=== PATIENT | male | born 1985 | race Caucasian/White ===

== ENCOUNTER 2022-03-13 15:21 | Emergency (ER) | payer OTHER, SELFPAY ==
--- NOTE | ~2022-03-13 | XR_ITS ---
EXAMINATION: XR CHEST CLINICAL INFORMATION: Syncope. Cough. COMPARISON: None TECHNIQUE: Frontal view of the chest was obtained. FINDINGS: No significant abnormality is noted involving the heart, lungs, mediastinum, bony thorax or soft tissues. XR/XR chest 1V IMPRESSION: Unremarkable examination.
[2022-03-13 15:45] VITALS: BP 142/80; PULSE 87; RESP 18; TEMP 36.8; O2SAT 98; BMI 28.3
--- NOTE | 2022-03-13 15:50 | ECG_ITS ---
Test Reason : SYNCOPE Blood Pressure : / mmHG Vent. Rate : 068 BPM Atrial Rate : 068 BPM P-R Int : 100 ms QRS Dur : 090 ms QT Int : 392 ms P-R-T Axes : 019 020 001 degrees QTc Int : 416 ms Sinus rhythm with short [place] Inferior infarct , age undetermined Abnormal ECG No previous ECGs available Referred By: Generic ED Physician Electronically Signed By:KAI STEEN MD
[2022-03-13 16:15] LABS: MANUAL DIFF FLAG NO
[2022-03-13 16:16] LABS: Basophils Percent Auto 0.7 % (0-2); Eosinophils Absolute Auto 0.2 X10*3/uL (0.0-0.4); Eosinophils Percent Auto 2.9 % (0-4); Hematocrit 40.7 % (42.0-52.0); Hemoglobin 13.5 g/dl (14.0-18.0); Imm Gran Abs Auto 0.02 X10*3/uL (0.00-0.03); Imm Gran Pct Auto 0.4 % (0.0-0.4); Lymphocytes Absolute Auto 1.6 X10*3/uL (1.2-4.9); Lymphocytes Percent Auto 29.5 % (20-40); Mean Corpuscular HGB Conc 33.2 g/dl (31.0-36.0); Mean Corpuscular Hemoglobin 28.6 pg (27.0-33.0); Mean Corpuscular Volume 86.2 fL (80.0-98.0); Mean Platelet Volume 9.4 fL (9.4-12.4); Monocytes Absolute Auto 0.6 X10*3/uL (0.1-1.2); Monocytes Percent Auto 10.6 % (2-11); Neutrophils Absolute Auto 3.1 x10*3/uL (2.0-8.3); Neutrophils Percent Auto 55.9 % (45-73); Platelet Count 232 X10*3/uL (160-400); Red Blood Count 4.72 X10*6/uL (4.60-5.80); Red Cell Distribution Width 12.8 % (11.0-16.0); White Blood Count 5.5 X10*3/uL (4.8-10.8)
[2022-03-13 16:33] LABS: Anion Gap 12 (12-20); Blood Urea Nitrogen 11 mg/dL (9-16); Calcium 9.1 mg/dL (8.4-10.2); Carbon Dioxide 27 mmol/L (22-29); Chloride 104 mmol/L (96-108); Creatinine Clr Calc Pharmacy 129.3; Estimated Glomerular Filt Rate > 60; Glucose Random 93 mg/dL (60-115); Potassium 3.6 mmol/L (3.3-5.1); Sodium 139 mmol/L (135-145)
[2022-03-13 16:38] LABS: Influenza A Negative (Negative); Influenza B2 Negative (Negative)
[2022-03-13 16:41] LABS: Troponin-I High Sensitivity < 3.5 ng/L (<3.5-35.0)
[2022-03-13 16:42] LABS: COVID-19 Test Negative (Negative); IDNOW Serial# 55D5AD1C
--- NOTE | 2022-03-13 22:04 | ED_ITS ---
HPI - Syncope General Chief Complaint: Syncope Stated Complaint: passed out 2X/dizziness Time Seen by Provider: 03/13/22 17:59 Source: patient Mode of arrival: ambulatory Limitations: no limitations History of Present Illness HPI narrative: 36-year-old male who presents emergency department for evaluation of cough, chest pain, shortness of breath, difficulty sleeping secondary to cough and a syncopal episode. The patient states that he is prone to getting bronchitis. He states that he had a COVID infection in 2020 and in November of 2021. He states that 2-3 weeks prior he had bronchitis history with amoxicillin he states that on , 03/07/2022 he developed bronchitis again. He states that he has a cough which is productive of thick green sputum. He has not noticed any blood in the sputum. He states that he has sharp intermittent pain in the center of his chest whenever he coughs. He denied fever or chills. He did see his PCP 2 days ago and was started on antibiotic and Tessalon Perles. He states that today he had an episode of coughing, he felt lightheaded and dizzy and then passed out for 10 seconds. He woke up again and then passed out for another 10 seconds. He states that he has had similar episodes of syncope in the past when he has vomited. He states that his cough is worse at night and he is having difficulty sleeping. Related Data Previous Rx's Medication Instructions Recorded codeine 10 mg-guaifenesin 200 mg/5 10 ml PO Q4-6H PRN #473 ml 03/13/22 mL oral liquid Allergies Allergy/AdvReac Type Severity Reaction Status Date / Time No Known Allergies Allergy Verified 03/13/22 15:49 Review of Systems Review of Systems: Yes all other systems are reviewed and are negative [facility] Past Medical History [facility] Narrative: Past medical history: COVID-19 infection x2, last infection November 2021. Anxiety. Past surgical history: None. Social history: He denies tobacco use. He denies alcohol use. He states that he occasionally uses marijuana. Social History Social History Advance Directives: No Physical Exam Vital Signs: Vital Signs: Last Vital Signs Temp 98.3 F 03/13/22 15:45 Pulse 87 03/13/22 15:45 Resp 18 03/13/22 15:45 BP 142/80 H 03/13/22 15:45 Pulse Ox 98 03/13/22 15:45 BMI result Body Mass Index 28.3 Const: General: cooperative and no acute distress Orientation/consciousness: oriented to person and oriented to place Limitations: no limitations HEENT: Head: Yes normal to inspection, Yes normocephalic and Yes atraumatic Ears: external ears normal General nose exam: Normal external nose present Face and sinus: Yes normal facial exam Mouth: Normal oral and palatal mucosa present Throat: Yes posterior oropharynx normal Eyes: General: appearance normal, both eyes and all related structures Pupils: Equal, round and reactive pupils present Neck: Neck: Yes normal visual inspection, Yes no lymphadenopathy, Yes trachea midline and Yes supple Chest: Chest palpation & inspection: normal inspection of the chest and normal palpation of entire chest wall Resp: Effort & Inspection: normal respiratory effort and able to speak in complete sentences Auscultation: clear to auscultation bilaterally Cardio: Rate: regular rate Rhythm: regular rhythm Heart sounds: S1 normal heart sound present, S2 normal heart sound present and no murmurs GI: Inspection: Yes normal to inspection Palpation (GI): Soft to palpation, nontender and no guarding Auscultation: normal bowel sounds : General: Yes no CVA tenderness Back/Spine/Pelvis: Back: no CVA tenderness Skin: General skin exam: no rashes or lesions noted Neuro: General: oriented to person and oriented to place Cranial nerves: Yes CN's II-XII intact bilaterally and Yes Equal, round and reactive pupils present Cognition (Neuro): normal cognition Motor exam (neuro): 5/5 motor strength present throughout Extrem: General: Yes normal to inspection Psych: Appearance: grossly normal Speech and movement: Normal speech and movement present Affect: normal affect Attitude: cooperative Thought process: Normal thought process present Thought content: Normal thought content present Course Course Course Narrative: 36-year-old male who presents emergency department for evaluation of cough, chest pain, syncopal episode x2. The patient has had a cough which is productive of thick green sputum x7 days, he has been on antibiotics and Tessalon Perles for 2 days. The patient had a coughing episode today which was followed by lightheadedness and then brief syncope for approximately 10 seconds x2 episodes. Patient has had similar syncopal episodes in the past triggered by events such as vomiting. The patient's vital signs were normal. Patient's physical examination was unremarkable. Laboratory evaluation included a CBC, CMP and troponin, these tests were all normal. The patient's COVID-19 test was negative and influenza test was negative. Twelve EKG was unremarkable as well. The patient's syncopal episodes are consistent with vasovagal syncope. At this time, the patient is being treated with antibiotics for his bronchitis and I do not think that he needs a change of antibiotics since he has only been on them for 2 days. I did prescribe Robitussin with codeine to help with the patient's cough at night and to try to help him with his insomnia. Patient was given printed and verbal instructions and discharged home. MDM - Syncope Lab Data Attestation: I reviewed the patient's lab results. Result diagrams: 03/13/22 16:07 03/13/22 16:07 Labs: Lab Results 03/13/22 03/13/22 03/13/22 Range/Units 16:07 16:07 16:07 WBC 5.5 (4.8-10.8) X10*3/uL RBC 4.72 (4.60-5.80) X10*6/uL Hgb 13.5 L (14.0-18.0) g/dl Hct 40.7 L (42.0-52.0) % MCV 86.2 (80.0-98.0) fL MCH 28.6 (27.0-33.0) pg MCHC 33.2 (31.0-36.0) g/dl RDW 12.8 (11.0-16.0) % Plt Count 232 (160-400) X10*3/uL MPV 9.4 (9.4-12.4) fL Immature Gran % (Auto) 0.4 (0.0-0.4) % Neut % (Auto) 55.9 (45-73) % Lymph % (Auto) 29.5 (20-40) % Mckean % (Auto) 10.6 (2-11) % Eos % (Auto) 2.9 (0-4) % Baso % (Auto) 0.7 (0-2) % Lymph # (Auto) 1.6 (1.2-4.9) X10*3/uL Mckean # (Auto) 0.6 (0.1-1.2) X10*3/uL Eos # (Auto) 0.2 (0.0-0.4) X10*3/uL Baso # (Auto) 0.0 (0.0-0.2) X10*3/uL Abs Immat Gran (auto) 0.02 (0.00-0.03) X10*3/uL Absolute Neuts (auto) 3.1 (2.0-8.3) x10*3/uL Absolute Nucleated RBC 0.000 (0.0-0.012) X10*3/uL Nucleated RBC % (auto) 0.0 (0.0-0.2) /100WBC Sodium 139 (135-145) mmol/L Potassium 3.6 (3.3-5.1) mmol/L Chloride 104 (96-108) mmol/L Carbon Dioxide 27 (22-29) mmol/L Anion Gap 12 (12-20) BUN 11 (9-16) mg/dL Creatinine 0.82 (0.5-1.4) mg/dL Estim Creat Clear Calc 129.3 Estimated GFR > 60 Random Glucose 93 (60-115) mg/dL Calcium 9.1 (8.4-10.2) mg/dL Troponin I High Sens < 3.5 (<3.5-35.0) ng/L COVID-19 (KIMBERLI) (Negative) COVID-19 Clin Com Influenza Type A (DUSTIN) (Negative) Influenza Type B (DUSTIN) (Negative) Influenza A & B Note 03/13/22 03/13/22 Range/Units 16:07 16:07 WBC (4.8-10.8) X10*3/uL RBC (4.60-5.80) X10*6/uL Hgb (14.0-18.0) g/dl Hct (42.0-52.0) % MCV (80.0-98.0) fL MCH (27.0-33.0) pg MCHC (31.0-36.0) g/dl RDW (11.0-16.0) % Plt Count (160-400) X10*3/uL MPV (9.4-12.4) fL Immature Gran % (Auto) (0.0-0.4) % Neut % (Auto) (45-73) % Lymph % (Auto) (20-40) % Mckean % (Auto) (2-11) % Eos % (Auto) (0-4) % Baso % (Auto) (0-2) % Lymph # (Auto) (1.2-4.9) X10*3/uL Mckean # (Auto) (0.1-1.2) X10*3/uL Eos # (Auto) (0.0-0.4) X10*3/uL Baso # (Auto) (0.0-0.2) X10*3/uL Abs Immat Gran (auto) (0.00-0.03) X10*3/uL Absolute Neuts (auto) (2.0-8.3) x10*3/uL Absolute Nucleated RBC (0.0-0.012) X10*3/uL Nucleated RBC % (auto) (0.0-0.2) /100WBC Sodium (135-145) mmol/L Potassium (3.3-5.1) mmol/L Chloride (96-108) mmol/L Carbon Dioxide (22-29) mmol/L Anion Gap (12-20) BUN (9-16) mg/dL Creatinine (0.5-1.4) mg/dL Estim Creat Clear Calc Estimated GFR Random Glucose (60-115) mg/dL Calcium (8.4-10.2) mg/dL Troponin I High Sens (<3.5-35.0) ng/L COVID-19 (KIMBERLI) Negative (Negative) COVID-19 Clin Com See Note Influenza Type A (DUSTIN) Negative (Negative) Influenza Type B (DUSTIN) Negative (Negative) Influenza A & B Note See Note ECG Data Attestation: I personally reviewed and interpreted this ECG as follows: Interpretation: 1554: Normal sinus rhythm with a rate of 68, normal NE interval, QRS duration QTC interval, no ST segment elevation, no ST segment depression, no PACs, no PVCs, inverted T-wave in lead 3, there is no old EKG for comparison. Discharge Plan Discharge Clinical Impression: Vasovagal syncope, Bronchitis Patient Disposition: Home, Self-Care Instructions: Syncope (ED) Additional Instructions: Your episodes of passing out (syncope) are commonly caused by coughing, vomiting and other activities that might stimulate your vasovagal nerve which then causes your heart rate to slow down, your blood pressure dropped and then causes you to faint. If you start to feel lightheaded and dizzy then you should lie down to prevent from fainting in injuring your self. Continue taking the antibiotics and the anti cough medicine that your doctor prescribed for you. I am starting you on Robitussin with codeine, take 1 or 2 tsp every 4-6 hours as needed for cough. This medication will make you sleepy, do not drive or work while taking this medicine, you should try to use this medicine at night to help you sleep. Codeine is a opiate medication and can cause addiction, if your conc erned about addiction do not get this prescription filled or you can ask the pharmacist for less medicine than prescribed. Follow-up with your doctor in 2 days. Please return to the emergency department if your symptoms get worse or if you develop any symptoms that are concerning to you. Please see the work note Prescriptions: New codeine-guaifenesin 10-200 mg/5 mL liquid 10 ml PO Q4-6H PRN (Reason: cold symptoms) Qty: 473 0RF Rx Instructions: Patient may request partial fill Stand Alone Forms: Work/School Release
[2022-03-13 22:22] VITALS: BP 118/61; PULSE 69; RESP 17; O2SAT 98
== END 2022-03-13 22:23 | disposition home or self-care (01) ==
PROVIDERS: Emergency Provider Emergency Medicine Emergency Medical Services; PCP Internal Medicine
DX: R55 Syncope and collapse (principal); J40 Bronchitis, not specified as acute or chronic; Z20.822 Contact with and (suspected) exposure to COVID-19
CPT/HCPCS: 36415; 71045; 80048; 84484; 85025; 87502; 87635; 93005; 99283

== ENCOUNTER 2023-06-08 15:58 | Emergency (ER) | payer OTHER, SELFPAY ==
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
[2023-06-08 16:38] VITALS: BP 122/74; PULSE 73; RESP 18; TEMP 36.4; O2SAT 97; BMI 31.3
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
[2023-06-08] MEDS: Lidocaine HCl 1 % MPF 5 ML VIAL SUBCUT (17:10)
[2023-06-08] MEDS: Diphth,Pertus(ACell),Tet Adult 0.5 ML SYRINGE IM (18:49)
== END 2023-06-08 19:26 | disposition home or self-care (01) ==
PROVIDERS: Emergency Provider Emergency Medicine; PCP Nurse Practitioner Primary Care
DX: S01.511A Laceration without foreign body of lip, initial encounter (principal); S00.01XA Abrasion of scalp, initial encounter; R51.9 Headache, unspecified; M54.2 Cervicalgia; V43.52XA Car driver injured in collision with other type car in traffic accident, initial encounter; Y93.9 Activity, unspecified; Y92.410 Unspecified street and highway as the place of occurrence of the external cause; Y99.9 Unspecified external cause status; Z79.899 Other long term (current) drug therapy
CPT/HCPCS: 12011; 70450; 70486; 72125; 90471; 90715; 96372; 99282; 99284